=== PATIENT | female | born 1940 | race Caucasian/White ===

== ENCOUNTER → 2017-04-09 | Outpatient (CLI) | payer OTHER ==
[~2017-04-09] MED LIST: AMLODIPINE BESYL5 MG PO; ASPIRIN81 M2 PO; ASPIRINEC PO; CALCIUM 600 + D1 TAB PO; DIAZEPAM PO; DICLOFENAC PO; FOSAMAX PO; LISINOPRIL PO; LISINOPRIL20 MG PO; LORTAB 7.5-5001 TAB PO; LOVENOX SUBQ; NORVASC PO; PERCOCET 5-3251 TAB PO; PRAVASTATIN SOD40 MG PO; ZOCOR PO; [UNRECOGNIZED DRUG - REMARK]
--- NOTE | ~2017-04-09 | MY29 ---
[facility] RADIOLOGY TEXT RESULTS PATIENT: CLINT HERNANDEZ LOCATION: [facility] : 40 UNIT #: [id number] AGE: [address]: Joyce Azevedo APRN SEX: F ORDER DR: [id number] [facility] [address] [place] [place], [place] [address] [id number] O MR#: [id number] Acc #: [id number] NAME: CLINT HERNANDEZ : 1940 SEX: F STUDY DATE/TIME: 04/09/2017 12:01 UNIT: [facility] ROOM: STUDY DESCRIPTION: MY CHELSY SCREENING W/ CAD BILAT Attending Physician: Joyce Azevedo A.P.R.N. Referring Physician: Joyce Azevedo A.P.R.N. Ordering Physician: Joyce Azevedo A.P.R.N. Primary Care Physician: Joyce Azevedo A.P.R.N. MEDICAL IMAGING REPORT This report is preliminary unless electronic signature is present EXAM Digital screening mammogram with CAD. INDICATIONS Routine screening. PROCEDURE Bilateral CC and MLO views obtained on a digital mammography unit. FDA-approved CAD device utilized. COMPARISON 04/03/2016 FINDINGS Scattered fibroglandular density. No dominant mass or suspicious calcification. IMPRESSION Negative screening mammogram. Screen interval in 1 year suggested. BIRADS B1-N negative. Patients over the age of 40 are entered into a reminder system with target due date for the next mammogram. A result letter will also be sent to the patient. BIRADS: 1 Negative. Dictated by... Yasir Machado M.D. THIS IS AN ELECTRONICALLY VERIFIED REPORT [facility] RADIOLOGY TEXT RESULTS PATIENT: CLINT HERNANDEZ LOCATION: [facility] : 40 UNIT #: [id number] AGE: [address]: Joyce Azevedo APRN SEX: F ORDER DR: Yasir Machado M.D. at 04/10/2017 7:14 AM ANDREW/lila TD: 04/09/2017 20:19 JOB #: [id number] MEDICAL IMAGING REPORT Page 1 of 1 COPY
== END | disposition home or self-care (01) ==
LOC: CWCC 11:38
DX: Z12.31 Encounter for screening mammogram for malignant neoplasm of breast (principal)
CPT/HCPCS: G0202